=== PATIENT | female | born 1965 | race Caucasian/White ===

== ENCOUNTER 2019-02-11 20:54 | Emergency (ER) | payer BC, OTHER ==
[~2019-02-11] VITALS: Ht 162.6 cm; Wt 50.4 kg
[2019-02-11 21:11] VITALS: BP 107/70
== END 2019-02-11 23:54 | disposition home or self-care (01) ==
LOC: ED 23:46
DX: S29.012A Strain of muscle and tendon of back wall of thorax, initial encounter (principal); W01.0XXA Fall on same level from slipping, tripping and stumbling without subsequent striking against object, initial encounter; Y93.89 Activity, other specified; Y92.89 Other specified places as the place of occurrence of the external cause; Y99.8 Other external cause status
CPT/HCPCS: 72128; 99284